=== PATIENT | female | born 1965 | race Caucasian/White ===

== ENCOUNTER 2023-01-18 12:54 | Emergency (ER) | payer BC, SELFPAY ==
[2023-01-18 12:56] VITALS: BP 109/71; PULSE 83; RESP 14; TEMP 36.5; O2SAT 93; BMI 28.1
[2023-01-18 13:00] VITALS: BP 103/68; PULSE 83; RESP 18; O2SAT 93
[2023-01-18] MEDS: predniSONE 20 MG Tablet 40 MG PO (13:16)
--- NOTE | 2023-01-18 13:45 | EX.ED.DYSGE1 ---
HPI History of Present Illness Chief Complaint: Allergic Reaction Informant: patient and EMS Narrative Narrative: About an hour prior to arrival, patient was trimming some brush on her property, suddenly was attacked by what appeared to be a bunch of yellowjacket bees, she sustained about 7 or 8 stings mostly to her upper torso and 1 to her buttock, and within about 2 minutes she started feeling her heart racing, she felt hot and burning all over her body, she felt lightheaded and near syncopal but did not pass out, and somewhat of a globus sensation in her throat although she did not have yves dyspnea nor did she have edema. No chest discomfort. She states all of this lasted about 20 minutes and spontaneously gradually resolved and now she feels fine except for the lesions where she was stung feel warm and sore. No itching or other rash. No prior allergic reactions to bee stings, but I have never been stung this much at 1 time. EMS did not administer any medications, they attempted to place an IV but were unsuccessful. [facility] Medical History Anxiety SVT (supraventricular tachycardia) Home Medications epinephrine 0.3 mg/0.3 mL injection, auto-injector (EpiPen) 0.3 mg (0.3 mL) IM Q4H PRN anaphylaxis #2 ea 01/18/23 [Rx Last Taken Unknown] prednisone 20 mg tablet 40 mg (2 x 20 mg) PO DAILY #4 TABLETS 01/18/23 [Rx Last Taken Unknown] Allergy/AdvReac Type Severity Reaction Status Date / Time No Known Allergies Allergy Verified 01/18/23 12:55 Social History Smoking Status: Unknown if ever smoked ROS ROS ED Constitutional Constitutional ED: Denies chills or fever(s) Eyes Eyes: Denies change in vision or diplopia ENT ENT ED: Reports as per HPI and throat swelling; Denies rhinorrhea or sore throat Cardiovascular Cardiovascular: Reports lightheadedness, palpitations and racing heartbeat; Denies chest pain or syncope Respiratory/Chest Respiratory/Chest: Denies cough or dyspnea Gastrointestinal Gastrointestinal: Denies abdominal pain, diarrhea, nausea or vomiting Genitourinary Genitourinary ED: Denies dysuria or hematuria Musculoskeletal Musculoskeletal: Denies back pain or neck pain Integumentary Reports as per HPI and lesions; Denies abscess or rash Neurologic Neurologic: Denies headache(s), paresthesias or weakness Psychiatric Psychiatric: Denies anxiety or suicidal thoughts EXAM Physical Exam Const Vital Signs: 01/18/23 12:56 01/18/23 13:00 01/18/23 13:49 Temperature 97.7 F L Temperature Source Temporal Pulse Rate 83 83 68 Respiratory Rate 14 18 13 Blood Pressure 109/71 103/68 120/84 H Blood Pressure Mean 83 79 96 Pulse Ox 93 93 97 Oxygen Delivery Method Room Air Room Air Room Air Positive well nourished and well developed General Appearance ED: well developed and NAD HEENT Reports moist mucous membranes normocephalic and atraumatic Eyes PERRL and EOMs intact bilaterally Neck full ROM and supple Resp normal respiratory effort and clear to auscultation bilaterally Cardio regular rate, regular rhythm and no murmurs Rate: Negative for tachycardic GI non-tender and non-distended Auscultation: normoactive bowel sounds Palpation: soft Back/Spine no CVA tenderness General Back: other FROM Extremity normal to inspection General Extremety ED: Negative for edema, pulses abnormal or tenderness General Extremity: Negative for edema or pulses abnormal Neuro oriented x3, CN's II-XII intact bilaterally and no sensory deficits noted Sensorium / Orientation: awake and alert Motor Exam: strength 5/5 throughout Skin no wounds Skin Narrative: Scattered small wheal and flare lesions upper chest, no other rashes. Mildly tender. MDM MDM MDM Narrative Medical decision making narrative: Patient feels better and has normal vital signs and a reassuringly normal exam. Suspect this was an anaphylactoid reaction. She does not require epinephrine at this time but if she had recurrence she would, so she was observed for about 1 hour before requesting to be discharged due to feeling fine; she was given prednisone 40 mg. She had no recurrence of her symptoms, she will be prescribed an EpiPen, she does have a history of SVT and advised that giving herself epinephrine does have that risk of putting her into SVT again, and it is only to be used in emergent situations. She understands this. She is prescribed prednisone for 2 more days. 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 EpiPen for emergency use only in recurrent similar situation where you are having trouble breathing, may pass out, swelling all over, short of breath, etc. This injection does carry risk of recurrent SVT, so emergency use only. Disposition Disposition: Home, Self Care
[2023-01-18 13:49] VITALS: BP 120/84; PULSE 68; RESP 13; O2SAT 97
--- NOTE | 2023-01-18 14:39 | ED.RN ---
pt decided to have rx sent to [facility] on [address] in [place] which is her primary pharmacy.
== END 2023-01-18 14:39 | disposition home or self-care (01) ==
PROVIDERS: Emergency Provider Emergency Medicine; Visit Provider Emergency Medicine
DX: T63.441A Toxic effect of venom of bees, accidental (unintentional), initial encounter (principal); Y93.H2 Activity, gardening and landscaping; Y92.89 Other specified places as the place of occurrence of the external cause
CPT/HCPCS: 99285